=== PATIENT | female | born 1985 | race Caucasian/White ===

== ENCOUNTER 2025-01-30 12:36 | Outpatient (AMB) | payer OTHER, SELFPAY ==
--- NOTE | 2025-01-30 12:49 | MHC.OFFVIS ---
Vital Signs 01/30/25 13:01 Height 5 ft 6 in Weight 160 lb BMI 25.8 BP 132/70 Blood Pressure Location Rt brachial Position Sitting Respiration 16 Pulse 70 Pulse Source Pulse Oximeter Pulse Oximetry (%) 99 Oxygen Delivery Method Simple Mask Intake Visit Reasons: inpatient services rn headache Intellectual Property Counsel Required: No Allergies amoxicillin Allergy (Intermediate, Verified 01/30/25 13:04) Hives Patient : No HPI Comments Details: Jeanine is a 39-year-old female patient with past history of anemia, asthma, GERD who is presenting today for headache evaluation among some other neurological concerns with positive lyme. Jeanine tells me today that she began having headaches in November of 2024. Prior to this, she did not have any headache history. Her headaches began in the apex of the head and occipital areas radiating to the frontal areas with additional pressure sensations to the right temporal and parietal area and area of the inner ear. Headaches have varied in intensity but are described as a pounding sensation and pressure sensation particularly worse with activity. Bending forward made her headaches worse and she has been awakening from sleep feeling very hung over including feeling of generalized illness, nausea, and dizziness. She has had some cognitive slowing and ongoing fatigue that has a accompanying this. She also has had 3 distinct episodes were she had very intense right sided head pressure and upon going to sleep at night, had a sensation that her ?brain had the chills? and she was not able to move her body but was aware of what was going around her. This has never happened to her in the past. Around the same time, she developed weakness to the left upper extremity that was only slightly noticeable when she was performing day-to-day activities. Her workup has so far been extensive and has included a positive Lyme test including both serum and CSF. She started treatment for Lyme on 01/05/2025 with a 21 day course of oral doxycycline. She also has follow up with a physician specializing in Lyme this week. Since taking the doxycycline, her symptoms in general have improved. They were especially improved while taking the doxycycline but since stopping the course of doxy have come back slightly more intense and has been more noticeable. Details of workup: 12/29/2024 MRI of the brain with and without contrast: Minimal scattered nonenhancing FLAIR hyperintensities in the white matter. Broad differential including migraine, sequela of previous infectious/inflammatory/demyelinating process, trauma, or early chronic microvascular ischemic changes. 01/15/2025 MRI cervical spine with and without contrast no discrete signal abnormality or abnormal enhancement in the cervical cord. Mild degenerative changes of the cervical spine as well 01/15/2025 MRA/MRV head with and without contrast: Normal MR venogram of head no evidence of dural venous sinus thrombosis. 01/15/2025 Lumbar puncture CSF: Protein, glucose, cell count, oligoclonal bands, and culture negative. Viral panel normal aside from a positive Lyme. 01/16/2025 bedside EEG: Within normal limits. Other related background information: Sleep:Some insomnia for which she was using THC gummies in the past but is now using hydroxyzine. She does snore Stressors: Health related stress Hydration: Hydrates well Caffeine intake: Minimal Alcohol intake: Rare Substance use: No Tobacco use: No PFSH Medical History (Updated 01/31/25 @ 09:23 by Erin Gallagher CNP) Migraine Headache Asthma Anemia GERD (gastroesophageal reflux disease) Surgical History Previous section Hx laparoscopic cholecystectomy H/O total hysterectomy Family History Father Hypertension Mother Breast cancer Paternal Grandfather CAD (coronary artery disease) Lung cancer Paternal Grandmother Diabetes mellitus Colon polyps Maternal Grandmother Ovarian cancer Arthritis Breast cancer Colon polyps Social History (Updated 01/30/25 @ 13:05 by Abby Cavazos CMA) Alcohol intake: never Patient Tobacco Use Status: Never used Tobacco Review of Systems Const All systems reviewed & are unremarkable except as noted in HPI and below Physical Exam Vital Signs: Last Vital Signs Pulse 70 01/30/25 13:01 Resp 16 01/30/25 13:01 BP 132/70 01/30/25 13:01 Pulse Ox 99 01/30/25 13:01 Oxygen Delivery Method Simple Mask 01/30/25 13:01 BMI result Body Mass Index 25.8 Const General: cooperative, healthy appearing, comfortable and no acute distress Nutritional Appearance: well nourished Orientation/consciousness: patient oriented x3 Limitations: no limitations HEENT Head: Yes normal to inspection and Yes normocephalic Eyes General: appearance normal, both eyes and all related structures Visual Vazquez: normal visual vazquez by confrontation Alignment and Position: alignment normal Periorbital: periorbital findings normal Eyelids: Yes eyelids normal Conjunctivae: conjunctivae normal Sclerae: sclerae normal Direct Ophthalmoscopy: normal light reflex, no papilledema and fundi normal bilaterally Neck Neck: Yes normal visual inspection and Yes full ROM Back/Spine/Pelvis Cervical Spine: normal cervical lordosis Thoracic/Lumbar Spine: thoracic and lumbar spine normal to inspection Neuro General: patient oriented x3 and deep tendon reflexes 2+ bilaterally Cranial nerves: Yes CN's II-XII intact bilaterally and Yes Facial sensation intact/muscles of mastication intact Cognition (Neuro): normal cognition Gait exam (Neuro): Normal gait present Motor exam (neuro): no tremor noted and Abnormal motor strength present (LUE -5/5. All other areas 5/5) Sensory Exam: double simultaneous stimulation for sensation normal Romberg Test: Negative Pupils: Normal pupillary reactivity/response: bilateral Psych Appearance: grossly normal Mental Status: mental status grossly normal Speech and movement: Normal speech and movement present and Clear speech present Affect: normal affect Attitude: cooperative Thought process: Normal thought process present Thought content: Normal thought content present Insight: Good insight present (Psych) Judgement: Good judgement present (Psych) Assessment & Plan Assessment & Plan (1) Headache: Code(s): R51.9 - Headache, unspecified Category: Medical (2) Snoring: Code(s): R06.83 - Snoring Category: Medical (3) Sleep paralysis: Code(s): G47.8 - Other sleep disorders Category: Medical (4) LUE weakness: Code(s): R29.898 - Other symptoms and signs involving the musculoskeletal system Category: Medical Plan Jeanine is a 39-year-old female patient with past history of anemia, asthma, GERD who is presenting today for headache evaluation among some other neurological concerns with positive lyme. In addition to her headaches, she has had left upper extremity weakness that is mild and only evident when she is doing day-to-day tasks. Her workup has otherwise been extensive and does not indicate likelihood of other causes though lyme testing is vague and it is possible there there is no relationship to symptoms. She has finished a 21 day course of doxycycline and symptoms did improve while in the doxycycline but have started to return against since stopping the course. She will be seeing a Lyme specialist this week. Headaches and left upper extremity weakness may also be a result of migraine-type headaches. She does note significant stress as well as ongoing poor sleep quality including snoring, ongoing fatigue, and ongoing cognitive slowing. This may indicate a sleep disorder that can certainly contribute to migraine-type headaches. I will order a sleep study. Headaches are however improving and we will hold on treatment for now though at follow up likely consider. Furthermore, she describes 3 distinct episodes of sensation of ?brain tingling? as well as inability to move. She has concerns regarding seizure. Event sounds more descriptive of sleep paralysis and her EEG performed at [place] was normal. We could in the future consider a longer EEG study should these events reoccur. - In-home sleep study - Consider need for repeat EEG - Follow up with Lyme specialist as scheduled - 6 week follow up. Consider headaches/migraine treatment at that time Orders: Orders RT PSG in-lab sleep study Today G47.8 - Other sleep disorders, R06.83 - Snoring Medications: New albuterol sulfate 90 mcg/actuation 2 inhalations inhalation Q6H 1 ea 0RF Coding Level of Care Code New Pt Level 4 (77987) Diagnoses Headache R51.9 Snoring R06.83 Sleep paralysis G47.8 LUE weakness R29.898
[2025-01-30 13:01] VITALS: BP 132/70; PULSE 70; RESP 16; O2SAT 99; BMI 25.8
--- OUTSIDE RECORDS SUMMARY | 2025-01-30 14:33 | XMS_ITS | Encounter Summary ---
Author Organization [facility] Address [address] [place] [address] Care Team Providers Care Shot Lighter Name Role Phone Andrew Gonzales MD Primary Care Provider Encounter Details Date Type Department Care Team (Late st Contact Info) Description 01/18/2025 Results [facility] [address] [place] [phone] Bernarda Campuzano MA Social History Tobacco Use Types Packs/Day Years Used Date Smoking Tobacco: Former Cigarettes 1 2.7 0 2007 - 04/01/2010 Smokeless Tobacco: Former Alcohol Use Standard Drinks/Week Comments No 0 (1 standard drink = 0.6 oz pur e alcohol) sober x2 years Comments No Sex and Gender Information Value Date Recorded Sex Assigned at Female 01/30/2024 9:44 PM EST Legal Sex Female 10:28 AM EST Gender Identity Female 01/30/2024 9:44 PM EST Sexual Orientation Not on file documented as of this encounter Plan of Treatment Upcoming Encounters Date Type Department Care Team (Late st Contact Info) Description 04/19/2025 9:00 AM EST Office Visit Bariatric Surgery - [place] [address] [facility] [address] [place] [address] Romana Pichardo PA [address] [place] [phone] 04/24/2025 9:00 AM EST Consult [facility] [address] [facility] [address] [place] [phone] Scout Valladares MD [address] [place] [address] documented as of this encounter Visit Diagnoses Not on filedocumented in this encounter Additional Health Concerns Infection Onset Date Last Indicated Resolved Time Gastrointestinal Rule-Out 01/23/2025 01/23/2025 7:33 PM EST C. difficile Rule-Out 01/23/2025 01/23/20252024 6:10 PM EST Assessment Noted Time PHQ-9 Depression Total Score: 0 01/19/20 12:46 PM EST documented as of this encounter Care Teams Shot Lighter Relationship Specialty Start Date End Date Andrew Gonzales MD [address] [place] [phone] PCP - General Internal Medicine 01/03/24 documented as of this encounter
--- OUTSIDE RECORDS SUMMARY | 2025-01-30 14:33 | XMS_ITS | Clinical Summary ---
Author Organization [facility] Address [address] [facility] [address] [place] [phone] Phone Care Team Providers Care Exerciser Horse Name Role Phone Andrew Gonzales MD Primary Care Provider + Social History Tobacco Use Types Packs/Day Years Used Date Smoking Tobacco: Never Assessed Education Answer Date Recorded Are you interested in more education? Not on tami e 01/03/2025 Are you concerned about learning? Not on file 01/03/2025 No 01/03/2025 No 01/03/2025 Digital Access Answer Date Recorded No 01/03/2025 No 01/03/2025 Reliable internet access at home? Not on file 01/03/2025 Device with a working camera? Not on file Comments Unknown Sex and Gender Information Value Date Recorded Sex Assigned at Not on file Legal Sex Female 4:45 PM EST Gender Identity Not on file Sexual Orientation Not on file Plan of Treatment Upcoming Encounters Date Type Department Care Team (Late st Contact Info) Description 03/07/2025 9:00 AM EST Office Visit [facility] Department of [facility]rology [address] [place] [address] Rohan Hummel MD [address] [place] [id number] [email or web address] Health Maintenance Due Date Last Done Comments Adult Td,Tdap Booster 1987 DEPRESSION SCREENING 1999 SMOKING Hx and SMOKELESS TOB ACCO SCREENING 07/10/2000 HEPATITIS C SCREENING 07/10/2005 HIV ONE-TIME SCREENING (18-6 5 YEARS) 07/10/2005 PAP SMEAR 07/10/2008 INFLUENZA VACCINE (#1) 2024 COVID-19 VACCINE ( - 2024-2 6 season) 2024 HEPATITIS A VACCINES Aged Out No long er eligible based on patient's age to complete this topic HIB VACCINES Aged Out No longer eligi ble based on patient's age to complete this topic MENINGOCOCCAL VACCINES (ACWY) Aged Out No longer eligible based on patient's age to complete this topic MENINGOCOCCAL VACCINES (B) Aged Out N o longer eligible based on patient's age to complete this topic PNEUMOCOCCAL VACCINES (0-49 years) Aged Out No longer eligible based on patient's age to complete this topic Medical Devices Not on file Insurance [facility] Address: [place] [address] [id number] [place] [phone] [place] [address] [facility] Address: [place] [id number] [facility] Address: [place] [address] Care Teams Exerciser Horse Relationship Specialty Start Date End Date Andrew Gonzales MD PCP - General Internal Medicine 01/03/25 Additional Source Comments The information contained in this document represents components of the legal health record. It is not the complete legal health record.[facility]
--- OUTSIDE RECORDS SUMMARY | 2025-01-30 14:33 | XMS_ITS | Encounter Summary ---
Author Organization [facility] Address [address] [place] [address] Care Team Providers Care Technical Sales Support Manager Name Role Phone Andrew Gonzales MD Primary Care Provider [phone] Reason for Referral * Consultation (Urgent) - Authorized Specialty Diagnoses / Procedures Referred By Contariane t Referred To Contact Infectious Diseases Diagnoses Lyme disease, unspecified Eloisa Rudolph NP [address] [place] [address] Phone: tel: fax: Infectious Disease [address] [place] [address] Phone: tel: fax: Referral ID Status Reason Start Date Expiration Date Visits Requested Visits Authorized [id number] Authorized Specialty Services Required 01/08/2026 1 1 Encounter Details Date Type Department Care Team (Late st Contact Info) Description 01/08/2025 Results Follow-Up Internal Medicine - [address] [phone] Eloisa Rudolph NP [address] [place] [phone] Social History Tobacco Use Types Packs/Day Years [...] on file documented as of this encounter Ordered Prescriptions Prescription Sig Dispense Quantity Refills Last Filled Start Date End Date doxycycline (VIBRAMYCIN) 100 mg capsule Take 1 capsule (100 mg total) by mouth 2 (two) times a day for 21 days. Take with at least 8 ounces (large glass) of water, do not lie down for 30 minutes after. Administer 2 hours before or after multivitamins, antacids, or other products containing polyvalent cations (i.e., calcium, iron, magnesium, selenium, zinc). 42 each 01/08/2025 documented in this encounter Plan of Treatment Upcoming Encounters Date Type Department Care Team (Late st Contact Info) Description 04/19/2025 9:00 AM EST Office Visit Bariatric Surgery - [place] [address] [facility] [address] [place] [phone] Romana Pichardo PA [address] [place] [phone] 04/24/2025 9:00 AM EST Consult [facility] [place] [facility] [place] [address] [facility] [address] [place] [phone] Scout Valladares MD [address] [place] [address] Scheduled Referrals Name Type Priority Associated Diagnoses Order Schedule Ambulatory referral to Infectious Disease Outpatient Referral Routine Lyme disease, unspecified 1 Occurrences starting 01/08/2025 until 01/08/2026 documented as of this encounter Visit Diagnoses Diagnosis Lyme disease, unspecified- Primary documented in this encounter Additional Health Concerns Infection Onset Date Last Indicated Resolved Time Gastrointestinal Rule-Out 01/23/2025 01/23/2025 7:33 PM EST C. difficile Rule-Out 01/23/2025 01/23/20252024 6:10 PM EST Assessment Noted Time PHQ-9 Depression Total Score: 0 01/05/20 3:49 PM EST documented as of this encounter Care Teams Technical Sales Support Manager Relationship Specialty Start Date End Date Andrew Gonzales MD [address] [place] [address] PCP - General Internal Medicine 01/03/24 documented as of this encounter
--- OUTSIDE RECORDS SUMMARY | 2025-01-30 14:33 | XMS_ITS | Clinical Summary ---
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 / Unknown 01/04/2025 4:44 PM EST 01/04/2025 4:44 PM EST us Eloisa Caldera HOME HEALTH BILLING SPECIALIST LAB URINE ORDERABLES Final R esult Performing Organization Address City/[facility]/ZIP Co de Phone Number [facility] [address] [place] [address], [place] [phone] * Thyroid stimulating hormone with reflex to free t4 and free t3 (01/04/2025 4:44 PM EST) TSH 0.84 0.40 - 4.00 mcIU/mL LAB CHEMISTRY METHOD 01/04/2025 7:42 PM EST [facility] Blood Venous blood specimen / Unknown Venipuncture / Unknown 01/04/2025 4:44 PM EST 01/04/2025 4:44 PM EST us Eloisa Caldera HOME HEALTH BILLING SPECIALIST LAB BLOOD ORDERABLES Final R esult Performing Organization Address [facility]/ZIP Co de Phone Number [facility] [address] [place] [address], [place] [phone] * Sjogrens antibodies, SSA and SSB (01/04/2025 4:44 PM EST) Sjogren's SS-A (Ro) Ab Quant 3 <20 units LAB CHEMISTRY METHOD 01/07/2025 12:52 PM EST [facility] Sjogren's SS-A (Ro) Ab Negative Negative LAB CHEMISTRY METHOD 01/07/2025 12:52 PM EST [facility] Sjogren's SS-B (La) Ab Quant 5 <20 units LAB CHEMISTRY METHOD 01/07/2025 12:52 PM EST [facility] Sjogren's SS-B (La) Ab Negative Negative LAB CHEMISTRY METHOD 01/07/2025 12:52 PM EST [facility] Blood Venous blood specimen / Unknown Venipuncture / Unknown 01/04/2025 4:44 PM EST 01/04/2025 4:44 PM EST us Eloisa Caldera NP LAB BLOOD ORDERABLES Final R esult [facility] [address] [place] [address], * Myocardial antibody IgG, reflex to titer (01/04/2025 4:44 PM EST) Myocardial Antibody Screen, IFA NEGATIVE NEGATIVE 01/10/2025 7:37 PM EST [facility] Comment: This test was developed and its analytical performance characteristics have been determined by [facility]. It has not been cleared or approved by the FDA. This assay has been validated pursuant to the CLIA regulations and is used for clinical purposes. Test Performed at: [facility] [address] [address] Libby Mendoza MD, PhD, ANITRA Previous comment was This test was developed and its analytical performance characteristics have been determined by [facility]. It has not been cleared or approved by the FDA. This assay has been validated pursuant to the CLIA regulations and is used for clinical purposes., verified by I/AUT at 18:56 on 01/09/2025 Myocardial Antibody Titer TNP 01/10/2025 7:37 PM EST [facility] Blood Venous blood specimen / Unknown Venipuncture / Unknown 01/04/2025 4:44 PM EST 01/04/2025 4:44 PM EST Eloisa Caldera NP LAB BLOOD ORDERABLES Edited Result - Final [facility] [address] [place] [address] * Babesia microti antibodies, IGG and IGM (01/04/2025 4:44 PM EST) Babesia microti IgG Antibodies <1:64 01/10/2025 7:37 PM EST [facility] Babesia microti IgM Antibodies <1:20 01/10/2025 7:37 PM EST [facility] Babesia microti Interpretation SEE NOTE 01/10/2025 7:37 PM EST [facility] Comment: ANTIBODY NOT DETECTED REFERENCE RANGES: IgG <1:64 IgM <1:20 Elevated antibody levels to B. microti indicate exposure to the organism. Human babesiosis infection is transmitted by the bite of an infected Ixodes tick or less frequently from transfusion with blood from an infected donor. Definitive diagnosis is made by identifying intraerythrocytic organisms in peripheral blood. In patients with low parasitemia, antibody detection by IFA is recommended. IgG levels greater than or equal to 1:1024 can be detected in acute phase patients with parasites in blood smears. The IFA assay can be used as a seroepidemiologic tool to study the frequency and distribution of B. microti in endemic areas especially in persons with mixed infections also involving Borrelia burgdorferi. This test was developed and its analytical performance characteristics have been determined by [facility]. It has not been cleared or approved by FDA. This assay has been validated pursuant to the CLIA regulations and is used for clinical purposes. Test Performed at: [facility] [id number] [place] [id number] Libby Mendoza MD, PhD Blood Venous blood specimen / Unknown Venipuncture / Unknown 01/04/2025 4:44 PM EST 01/04/2025 4:44 PM EST Eloisa Caldera HOME HEALTH BILLING SPECIALIST LAB BLOOD ORDERABLES Final R esult [facility] [address] [place] [address] * Anaplasma phagocytophilum antibodies, IGG and IGM (01/04/2025 4:44 PM EST) Anaplasma phagocytophilum IgG Ab <1:64 <1:64 01/10/2025 9:39 PM EST [facility] Anaplasma phagocytophilum IgM Ab <1:20 <1:20 01/10/2025 9:39 PM EST [facility] Anaplasma phagocytophilum Interpretation SEE BELOW 01/10/2025 9:39 PM EST [facility] Comment:Antibody Not Detecte d Comment SEE BELOW 01/10/2025 9:39 PM EST [facility] Comment: Anaplasma phagocytophilum is the tick-borne agent causing Human Granulocytic Ehrlichiosis (HGE). HGE is distinct and separate from Human Monocytic Ehrlichiosis (HME), caused by Ehrlichia chaffeensis. Serologic crossreactivity between A. phagocyto- philum and E. chaffeensis is minimal (5-15%). This test was developed and its analytical performance characteristics have been determined by [facility]. It has not been cleared or approved by the U.S. Food and Drug Administration. This assay has been validated pursuant to the CLIA regulations and is used for clinical purposes. Test Performed by [facility], [facility] [place], [address] [place], [place] Anil Bray M.D., Ph.D., Director of Laboratories , CLIA [id number] Blood Venous blood specimen / Unknown Venipuncture / Unknown 01/04/2025 4:44 PM EST 01/04/2025 4:44 PM EST Eloisa Caldera HOME HEALTH BILLING SPECIALIST LAB BLOOD ORDERABLES Final R esult [facility] [address] [place] [address] * DAO IFA with titer and pattern (01/04/2025 4:44 PM EST) DAO Negative Negative 01/05/2025 2:23 PM EST [facility] Comment:DAO performed by ind irect immunofluorescence (IFA) using HEp-2 substrate. Blood Venous blood specimen / Unknown Venipuncture / Unknown 01/04/2025 4:44 PM EST 01/04/2025 4:44 PM EST Eloisa Caldera HOME HEALTH BILLING SPECIALIST LAB BLOOD ORDERABLES Final R esult [facility] [address] [place] [address], * (ABNORMAL) CBC auto differential (01/04/2025 4:44 PM EST) [facility] WBC 16.0(H) 4.8 - 10.8 K/mcL LAB HEMETOLOGY METHOD 01/04/2025 6:29 PM [facility] RBC 4.50 3.80 - 4.80 M/mcL LAB HEMETOLOGY METHOD 01/04/2025 6:29 PM [facility] Hemoglobin 13.4 11.5 - 16.0 g/dL LAB HEMETOLOGY METHOD 01/04/2025 6:29 PM [facility] Hematocrit 39.5 35.0 - 47.0 % LAB HEMETOLOGY METHOD 01/04/2025 6:29 PM [facility] MCV 88.0 79.0 - 98.0 FL LAB HEMETOLOGY METHOD 01/04/2025 6:29 PM [facility] MCH 29.8 27.0 - 32.0 pcg LAB HEMETOLOGY METHOD 01/04/2025 6:29 PM [facility] MCHC 33.9 32.0 - 37.0 g/dL LAB HEMETOLOGY METHOD 01/04/2025 6:29 PM [facility] RDW 12.1 11.0 - 15.0 % LAB HEMETOLOGY METHOD 01/04/2025 6:29 PM [facility] Platelets 335 130 - 400 K/mcL LAB HEMETOLOGY METHOD 01/04/2025 6:29 PM [facility] MPV 10.2 7.0 - 11.0 FL LAB HEMETOLOGY METHOD 01/04/2025 6:29 PM [facility] NRBC 0.0 <1.0 % LAB HEMETOLOGY METHOD 01/04/2025 6:29 PM [facility] NRBC Absolute 0.00 <0.10 K/mcL LAB HEMETOLOGY METHOD 01/04/2025 6:29 PM [facility] Neutrophils Relative 82.8 % LAB HEMETOLOGY METHOD 01/04/2025 6:29 PM [facility] Lymphocytes Relative 10.4 % LAB HEMETOLOGY METHOD 01/04/2025 6:29 PM [facility] Monocytes Relative 4.6 % LAB HEMETOLOGY METHOD 01/04/2025 6:29 PM [facility] Eosinophils Relative 1.1 % LAB HEMETOLOGY METHOD 01/04/2025 6:29 PM [facility] Basophils Relative 0.6 % LAB HEMETOLOGY METHOD 01/04/2025 6:29 PM [facility] Immature Granulocytes Relative 0.5 % LAB HEMETOLOGY METHOD 01/04/2025 6:29 PM [facility] Neutrophils Absolute 13.23(H) 1.50 - 7.00 K/mcL LAB HEMETOLOGY METHOD 01/04/2025 6:29 PM EST [facility] Lymphocytes Absolute 1.66 1.00 - 5.00 K/[facility] HEMETOLOGY METHOD 01/04/2025 6:29 PM EST [facility] Monocytes Absolute 0.74 0.20 - 1.00 K/[facility] HEMETOLOGY METHOD 01/04/2025 6:29 PM EST [facility] Eosinophils Absolute 0.17 0.00 - 0.50 K/[facility] HEMETOLOGY METHOD 01/04/2025 6:29 PM EST [facility] Basophils Absolute 0.10 0.00 - 0.20 K/[facility] HEMETOLOGY METHOD 01/04/2025 6:29 PM EST [facility] Immature Granulocytes Absolute 0.08(H) 0.00 - 0.03 K/[facility] HEMETOLOGY METHOD 01/04/2025 6:29 PM EST [facility] Blood Venous blood specimen / Unknown Venipuncture / Unknown 01/04/2025 4:44 PM EST 01/04/2025 4:44 PM EST us Eloisa Caldera HOME HEALTH BILLING SPECIALIST LAB BLOOD ORDERABLES Final R esult [facility] [address] [place] [address], * Thyroid peroxidase antibody (01/04/2025 4:44 PM EST) Thyroid Peroxidase Ab 43.0 <=60.0 I Unit/mL LAB CHEMISTRY METHOD 01/04/2025 7:15 PM EST [facility] Blood Venous blood specimen / Unknown Venipuncture / Unknown 01/04/2025 4:44 PM EST 01/04/2025 4:44 PM EST us Eloisa Caldera HOME HEALTH BILLING SPECIALIST LAB BLOOD ORDERABLES Final R esult [facility] [address] [place] [address], * Smooth muscle antibody IgG (01/04/2025 4:44 PM EST) Smooth Muscle (F-Actin) IgG Ab 8 <20 UNITS 01/08/2025 1:59 PM EST [facility] Comment: Interpretation: Negative Test performed at [facility], [address] , [place] [address] Britt Campos MD, PhD - Hearing Aid Repair Technician Blood Venous blood specimen / Unknown Venipuncture / Unknown 01/04/2025 4:44 PM EST 01/04/2025 4:44 PM EST Eloisa Caldera NP LAB BLOOD ORDERABLES Final R esult [facility] [address] [place] [address] * Ehrlichia chaffeensis antibodies, IgG and IgM (01/04/2025 4:44 PM EST) Ehrlichia chaffeensis Ab IgG <1:64 <1:64 01/10/2025 9:39 PM EST [facility] Ehrlichia chaffeensis Ab IgM <1:20 <1:20 01/10/2025 9:39 PM EST [facility] Interpretation SEE BELOW 01/10/2025 9:39 PM EST [facility] Comment:Antibody Not Detecte d Comment SEE BELOW 01/10/2025 9:39 PM EST [facility] Comment: Ehrlichia chaffeenis has been identified as the causative agent of Human Monocytic Ehrlichiosis (HME). Infected individuals produce specific antibodies to E. chaffeensis that can be detected by an immuno- fluorescent antibody (IFA) test. Single IgG IFA titers of 1:64 or greater indicate exposure to E. chaffeensis. A four-fold rise in IgG titers between acute and convalescent samples and/or the presence of IgM antibody against E. chaffeensis suggest recent or current infection. This test was developed and its analytical performance characteristics have been determined by [facility] [place], [place]. It has not been cleared or approved by the U.S. Food and Drug Administration. This assay has been validated pursuant to the CLIA regulations and is used for clinical purposes. Test Performed by [facility], [facility] [place], [address] [place], [place] Anil Bray M.D., Ph.D., Director of Laboratories , CLIA [id number] Blood Venous blood specimen / Unknown Venipuncture / Unknown 01/04/2025 4:44 PM EST 01/04/2025 4:44 PM EST Eloisa Caldera NP LAB BLOOD ORDERABLES Final R esult [facility] [address] [place] [address] * (ABNORMAL) Borrelia burgdorferi antibody (01/04/2025 4:44 PM EST) Pathologist [facility] Lyme IgG Antibody Negative Negative LAB CHEMISTRY METHOD 01/05/2025 11:00 AM EST [facility] Lyme IgM Antibody Positive(A) Negative LAB CHEMISTRY METHOD 01/05/2025 11:00 AM EST [facility] Lyme Ab Equivocal(A ) Negative LAB CHEMISTRY METHOD 01/05/2025 11:00 AM EST [facility] Comment: Results are consistent with acute or recent infection with B. burgdorferi (Lyme disease). IgM immunoassay results should ONLY be considered as indicative of recent infections in patients presenting within 30 days of symptoms onset. Consideration of IgM results in patients with symptoms lasting >30 days is discouraged due to the risk of false positive IgM results or prolonged IgM seropositivity following disease resolution. Testing of a new specimen collected in 7-14 days to demonstrate IgG seroconversion may be considered to confirm infection. If both tests are equivocal consider repeat testing in 7-14 days if clinically warranted. Blood Venous blood specimen / Unknown Venipuncture / Unknown 01/04/2025 4:44 PM EST 01/04/2025 4:44 PM EST us Eloisa Caldera HOME HEALTH BILLING SPECIALIST LAB BLOOD ORDERABLES Final R esult Performing Organization Address City/[facility]/ZIP Co de Phone Number [facility] [address] [place] [address], [place] [phone] * Anti-scleroderma antibody (01/04/2025 4:44 PM EST) Scleroderma SCL - 70 Negative Negative LAB CHEMISTRY METHOD 01/07/2025 12:52 PM EST [facility] Blood Venous blood specimen / Unknown Venipuncture / Unknown 01/04/2025 4:44 PM EST 01/04/2025 4:44 PM EST us Eloisa Caldera HOME HEALTH BILLING SPECIALIST LAB BLOOD ORDERABLES Final R esult Performing Organization Address [facility] Co de Phone Number [facility] [address] [place] [address], [place] [phone] * DNA antibody, double-stranded (01/04/2025 4:44 PM EST) Pathologist [facility] Anti-DNA Double Stranded Antibody LAB CHEMISTRY METHOD 01/06/2025 7:19 AM EST [facility] ds DNA Ab LAB CHEMISTRY METHOD 01/06/2025 7:19 AM EST [facility] Comment:Anti-dsDNA test not indicated when DAO is negative. Blood Venous blood specimen / Unknown Venipuncture / Unknown 01/04/2025 4:44 PM EST 01/04/2025 4:44 PM EST us Eloisa Caldera HOME HEALTH BILLING SPECIALIST LAB BLOOD ORDERABLES Final R esult Performing Organization Address City/[facility] Co de Phone Number [facility] [address] [place] [address], [place] [phone] * Anti-parietal antibody (01/04/2025 4:44 PM EST) Gastric Parietal Cell Ab 18.5 <=20 UNITS 01/12/2025 12:06 PM EST [facility] Comment: Interpretation: Negative Test performed at [facility], [address], [place] [address] Britt Campos MD, PhD - Hearing Aid Repair Technician Blood Venous blood specimen / Unknown Venipuncture / Unknown 01/04/2025 4:44 PM EST 01/04/2025 4:44 PM EST Eloisa Caldera HOME HEALTH BILLING SPECIALIST LAB BLOOD ORDERABLES Final R esult [facility] [address] [place] [address] * Antimitochondrial antibody (01/04/2025 4:44 PM EST) Mitochondrial Antibody Quantitative 4.0 <=20.0 units LAB CHEMISTRY METHOD 01/10/2025 12:04 PM EST [facility] Mitochondrial Antibody Qualitative Negative Negative LAB CHEMISTRY METHOD 01/10/2025 12:04 PM EST [facility] Blood Venous blood specimen / Unknown Venipuncture / Unknown 01/04/2025 4:44 PM EST 01/04/2025 4:44 PM EST us Eloisa Caldera HOME HEALTH BILLING SPECIALIST LAB BLOOD ORDERABLES Final R [facility] [address] [place] [address], * Rheumatoid factor (01/04/2025 4:44 PM EST) Rheumatoid Factor <10.0 <15.0 I Unit/mL LAB CHEMISTRY METHOD 01/04/2025 6:51 PM EST [facility] Blood Venous blood specimen / Unknown Venipuncture / Unknown 01/04/2025 4:44 PM EST 01/04/2025 4:44 PM EST us Eloisa Caldera HOME HEALTH BILLING SPECIALIST LAB BLOOD ORDERABLES Final R esult Performing Organization Address City/[facility]/ZIP Co de Phone Number [facility] [address] [place] [address], [place] [phone] * C3 complement (01/04/2025 4:44 PM EST) C3 Complement 140 88 - 201 mg/dL LAB CHEMISTRY METHOD 01/04/2025 6:51 PM EST [facility] Blood Venous blood specimen / Unknown Venipuncture / Unknown 01/04/2025 4:44 PM EST 01/04/2025 4:44 PM EST us Eloisa Caldera HOME HEALTH BILLING SPECIALIST LAB BLOOD ORDERABLES Final R esult Performing Organization Address [facility] Co de Phone Number [facility] [address] [place] [address], [place] [phone] * C4 complement (01/04/2025 4:44 PM EST) C4 Complement 30 16 - 47 mg/dL LAB CHEMISTRY METHOD 01/04/2025 6:51 PM EST [facility] Blood Venous blood specimen / Unknown Venipuncture / Unknown 01/04/2025 4:44 PM EST 01/04/2025 4:44 PM EST us Eloisa Caldera HOME HEALTH BILLING SPECIALIST LAB BLOOD ORDERABLES Final R esult Performing Organization Address City/[facility]/ZIP Co de Phone Number [facility] [address] [place] [address], [place] [phone] * (ABNORMAL) Lipid panel with reflex to direct LDL (07/14/2024 11:18 AM EDT) Cholesterol 200 0 - 200 mg/dL LAB CHEMISTRY METHOD 07/14/2024 2:49 PM EDT [facility] Triglycerides 114 0 - 150 mg/dL LAB CHEMISTRY METHOD 07/14/2024 2:49 PM EDT [facility] HDL 71 >=40 mg/dL LAB CHEMISTRY METHOD 07/14/2024 2:49 PM EDT [facility] LDL Calculated 106(H) 0 - 100 mg/dL LAB CHEMISTRY METHOD 07/14/2024 2:49 PM EDT [facility] VLDL Cholesterol Bhavesh 22.8 mg/dL LAB CHEMISTRY METHOD 07/14/2024 2:49 PM EDT [facility] Non HDL Chol. (LDL+VLDL) 129 <145 mg/dL LAB CHEMISTRY METHOD 07/14/2024 2:49 PM EDT [facility] Chol/HDL Ratio 2.8 0.0 - 4.4 LAB CHEMISTRY METHOD 07/14/2024 2:49 PM EDT [facility] Blood Venous blood specimen / Unknown Venipuncture / Unknown 07/14/2024 11:18 AM EDT 07/14/2024 11:18 AM EDT Romana [facility]ERN[facility] LAB BLOOD ORDERABLES Final R esult [facility] [address] [place] [address], * HIV Screening (10/12/2013) HIV Screening abstracted Historical Provider HEALTH MAINTENANCE Final Result * Hepatitis C Screening (10/12/2013) Pathologist [facility] Hepatitis C Screening abstracted Historical Provider HEALTH MAINTENANCE Final Result * Pap Smear (06/14/2013) Pathologist [facility] Pap smear negative, abstracted Historical Provider HEALTH MAINTENANCE Final Result from Last 3 Months or Most Recently Relevant to Health Maintenance Insurance [facility] Care Teams Special Education Secretary Relationship Specialty Start Date End Date Andrew Gonzales MD [address] [place] [id number] PCP - General Internal Medicine 01/03/24
--- OUTSIDE RECORDS SUMMARY | 2025-01-30 14:33 | XMS_ITS ---
Author Name [facility] Organization Unknown Care Team Organization Name Specialty Phone Email Start Date End [facility] te [facility] Andrew Gonzales Primary Care 01/06/2022 10/18/19 24
--- OUTSIDE RECORDS SUMMARY | 2025-01-30 14:33 | XMS_ITS | Encounter Summary ---
Author Organization [facility] Address [address] [place] [address] Care Team Providers Care Artificial Flowers Dyer Name Role Phone Andrew Gonzales MD Primary Care Provider [phone] Encounter Details Date Type Department Care Team (Late Contact Info) Description 01/19/2025 Telephone Internal Medicine - [address] [phone] Andrew Gonzales MD [address] [place] [phone] Social History Tobacco Use Types Packs/Day Years [...] Encounters Date Type Department Care Team (Late Contact Info) Description 04/19/2025 9:00 AM EST Office Visit Bariatric Surgery - [address] [place] [address] Romana Pichardo PA [address] [place] [phone] 04/24/2025 9:00 AM EST Consult [facility] [address] [facility] [address] [place] [address] Scout Valladares MD [address] [place] [address] documented as of this encounter Visit Diagnoses Not on filedocumented in this encounter Additional Health Concerns Infection Onset Date Last Indicated Resolved Time Gastrointestinal Rule-Out 01/23/2025 01/23/2025 7:33 PM EST C. difficile Rule-Out 01/23/2025 01/23/20252024 6:10 PM EST Assessment Noted Time PHQ-9 Depression Total Score: 0 01/19/20 12:46 PM EST documented as of this encounter Care Teams Artificial Flowers Dyer Relationship Specialty Start Date End Date Andrew Gonzales MD [address] [place] [phone] PCP - General Internal Medicine 01/03/24 documented as of this encounter
--- OUTSIDE RECORDS SUMMARY | 2025-01-30 14:33 | XMS_ITS | Encounter Summary ---
Author Organization [facility] Address [address] [place] [address] Care Team Providers Care Online Retailer Name Role Phone Andrew Gonzales MD Primary Care Provider [phone] Reason for Visit * Reason Onset Date Comments Forms/questionnaires 01/19/2025 PFML Encounter Details Date Type Department Care Team (Late st Contact Info) Description 01/19/2025 [facility] [address] [place] [phone] Andrew Gonzales MD [address] [place] [phone] Social History Tobacco Use Types Packs/Day Years [...] on file documented as of this encounter Progress Notes * Charlene Goldsmith - 01/30/2025 11:36 AM EST Patient came in stating that the paperwork has to have a return to work date - this form has been denied from the PFMLA provider - form has been put in kimmie's bin to be corrected * Kimmie Schofield MA - 01/23/2025 2:03 PM EST Form completed and left at the front desk manager for crab picker. * Kimmie Schofield MA - 01/19/2025 4:08 PM EST Form was received on 01/12/25. Turn around time for forms is 7-10 business days. * Mckinley Abdalla - 01/19/2025 1:07 PM EST Patient is calling to check status of PFMLA form. She has been out of work for a month and has beenwaiting for these forms for 11 days. Please call patient [phone] documented in this encounter Plan of Treatment Upcoming Encounters Date Type Department Care Team (Late st Contact Info) Description 04/19/2025 9:00 AM EST Office Visit Bariatric Surgery - [place] [address] [facility] [address] [place] [address] Romana Pichardo PA [address] [place] [phone] 04/24/2025 9:00 AM EST Consult [facility] [place] [address] [facility] [address] [place] [address] Scout Valladares MD [address] [place] [address] documented as of this encounter Visit Diagnoses Not on filedocumented in this encounter Additional Health Concerns Infection Onset Date Last Indicated Resolved Time Gastrointestinal Rule-Out 01/23/2025 01/23/2025 7:33 PM EST C. difficile Rule-Out 01/23/2025 01/23/20252024 6:10 PM EST Assessment Noted Time PHQ-9 Depression Total Score: 0 01/19/20 12:46 PM EST documented as of this encounter Care Teams Online Retailer Relationship Specialty Start Date End Date Andrew Gonzales MD [address] [place] [address] PCP - General Internal Medicine 01/03/24 documented as of this encounter
== END 2025-01-30 13:42 | disposition home or self-care (01) ==
LOC: HO.HSM 12:36
PROVIDERS: Visit Provider Nurse Practitioner
DX: R51.9 Headache, unspecified (principal); R06.83 Snoring; G47.8 Other sleep disorders; R29.898 Other symptoms and signs involving the musculoskeletal system
CPT/HCPCS: 99204